=== PATIENT | male | born 1975 | race Caucasian/White ===

== ENCOUNTER 2016-05-19 16:32 | Emergency (ER) | payer OTHER ==
[~2016-05-19] VITALS: Ht 175.3 cm; Wt 171.0 kg
[2016-05-19 16:35] VITALS: TEMP 36.8; Ht 175.3 cm; Wt 171.0 kg
[2016-05-19] MEDS ORDERED: SIMV20TA2 PO (17:36)
[2016-05-19] MEDS ORDERED: CITA20TA9 PO (17:36)
[2016-05-19] MEDS ORDERED: SENN-61 PO (17:36)
[2016-05-19] MEDS ORDERED: FURO20TA PO (17:36)
[2016-05-19] MEDS ORDERED: CLON0.5T3 PO (17:36)
[2016-05-19] MEDS ORDERED: CGN5X PO (17:36)
[2016-05-19] MEDS ORDERED: OMEP40CA41 PO (17:36)
[2016-05-19] MEDS ORDERED: POTA10CA28 PO (17:36)
[2016-05-19] MEDS ORDERED: DESM1TAB16 PO (17:36)
[2016-05-19] MEDS ORDERED: METF500T5 PO (17:36)
[2016-05-19] MEDS ORDERED: HMLI7525 SQ (17:37)
[2016-05-19] MEDS ORDERED: TOPI100T20 PO (17:37)
[2016-05-19] MEDS ORDERED: ALLO300T2 PO (17:37)
[2016-05-19] MEDS ORDERED: HYDR25TA4 PO (17:37)
[2016-05-19] MEDS ORDERED: LISI-789 PO (17:37)
[2016-05-19] MEDS ORDERED: OLAN1TAB50 PO (17:37)
[2016-05-19] MEDS ORDERED: BUPR-79 PO (17:37)
[2016-05-19 17:43] LABS: URINE APPEARANCE CLEAR (CLEAR); URINE BILIRUBIN NEG (NEG); URINE COLOR YELLOW; URINE NITRITE NEG (NEG); URINE PH 7.5 (4.5-7.5); URINE SPECIFIC GRAVITY 1.009 (1.000-1.030); UROBILINOGEN NEG (NEG)
[2016-05-19 17:52] LABS: MANUAL MICROSCOPIC REQUIRED? NO; REVIEW REQ? NO
[2016-05-19 18:17] LABS: BASO % 0.3 %; BASO ABS # 0.02 K/uL (0-0.2); COMPLETE YES; EOS % 4.2 %; IG% 0.3 %; LYMPH % 24.5 %; MEAN CELL VOLUME 93.7 fL (80-100); MEAN CORPUSCULAR HEMOGLOBIN 32.4 pg (25-34); MEAN CORPUSCULAR HGB CONC 34.6 g/dl (32-36); MEAN PLATELET VOLUME 11.3 fL (7.4-10.4); NEUT % 61.7 %; PLATELET COUNT 210 K/uL (130-400); RED BLOOD COUNT 3.95 M/uL (4.7-6.1); WHITE BLOOD COUNT 6.12 K/uL (4.8-10.8)
[2016-05-19 18:17] LABS: BENZODIAZEPINE, URINE NEG (NEG); COCAINE,URINE NEG (NEG); PHENCYCLIDINE, URINE NEG (NEG)
[2016-05-19 18:36] LABS: BLOOD UREA NITROGEN 12 mg/dl (7-18); BUN/CREATININE RATIO 12.2 (10-20); GLUCOSE 131 mg/dl (70-99)
[2016-05-19 18:37] LABS: ALT/SGPT 34 U/L (12-78); AST/SGOT 20 U/L (15-37); CALCIUM 8.5 mg/dl (8.5-10.1); CARBON DIOXIDE 24 mmol/L (21-32); CHLORIDE 107 mmol/L (98-107); POTASSIUM 3.6 mmol/L (3.5-5.1); SODIUM 142 mmol/L (136-145)
[2016-05-19 18:47] LABS: ALB/GLOB RATIO 1.1 (0.9-2); ALKALINE PHOSPHATASE 68 U/L (45-117)
[2016-05-19 20:22] VITALS: BP 124/82; PULSE 90; O2SAT 97
--- NOTE | 2016-05-19 23:07 | EMERGENCY ROOM VISIT NOTE ---
History Report prepared by Che: Verona Ngo Under the Supervision of: Dr. Zeferino Bacon D.O. First contact with patient: 16:39 Chief Complaint: MENTAL HEALTH EVALUATION Stated Complaint: PERVIOUS THOUGHTS OF SUICIDE History of Present Illness The patient is a 41 year old male who presents to the Emergency Room for a mental health evaluation. The patient has a history of schizoaffective bipolar disorder. He notes that he has been having intermittent suicidal thoughts over the past couple of months. About 2-3 weeks ago, his suicidal thoughts worsened and he had a plan to overdose. The patient has had one suicide attempt in the past by overdosing on Paxil. Currently, the patient is not having and suicidal thoughts. He had an appointment with his psychiatrist today and discussed his suicidal thoughts from a few weeks ago. He was subsequently referred to the emergency room to seek inpatient treatment. The patient is unsure what exactly the trigger was to his worsening suicidal thoughts recently. He states that he tries to block out and forget what causes his suicidal thoughts. The patient notes that his general depression comes from the fact that he is 41 and still lives with his parents and does not keep in contact with his friends. The patient notes that he has had some delusions and paranoia, which have been coming and going for a while now. He states that [place] town [place] and he feels like people are judgemental of his situation. He feels like it is reasonable for him to feel paranoid. He denies recent drug or alcohol use. The patient notes that he has had some leg swelling and shortness of breath with exertion that has been baseline for him over the past 5 months. Pt denies headache, change in vision, fevers, chest pain, nausea, vomiting, diarrhea, pain with urination, and melena. Source of History: patient Onset: a couple months ago Position: other (psych) Quality: other (suicidal thoughts) Timing: intermittent Associated Symptoms: No chest pain, No diarrhea, No fevers, No headache, No melena, No nausea, No urinary symptoms, No vomiting Review of Systems See HPI for pertinent positives & negatives. A total of 10 systems reviewed and were otherwise negative. Past Medical & Surgical Medical Problems: (1) Schizoaffective disorder, bipolar type (2) Type 2 diabetes mellitus Family History No pertinent family history stated. Social History Smoking Status: Former Smoker Housing Status: lives with family Current/Historical Medications Scheduled Allopurinol (Zyloprim), 300 MG PO DAILY Benztropine Mesylate (Benztropine Mesylate), 0.5 MG PO QAM Bupropion (Wellbutrin Sr), 150 MG PO DAILY Citalopram Hydrobromide (Celexa), 20 MG PO HS Clonazepam (Klonopin), 0.5 MG PO BID Desmopressin Acetate (Ddavp), 0.2 MG PO HS Hydrochlorothiazide (Hctz), 25 MG PO DAILY Insulin Lispro 75/25 (Humalog Mix 75/25), 35 UNITS SQ BID Lisinopril (Zestril), 2.5 MG PO HS Metformin Hcl Er (Glucophage Er), 2,000 MG PO DAILYBD Olanzapine (Zyprexa Zydis Odt), 10 MG PO BID Omeprazole (Prilosec), 40 MG PO DAILY Potassium Chloride (Micro-K Ext Rel), 10 MEQ PO DAILY Senna (Senokot), 2 TAB PO BID Simvastatin (Zocor), 20 MG PO HS Topiramate (Topamax), 100 MG PO BID Scheduled PRN Furosemide (Lasix), 20 MG PO DAILY PRN for FLUID RETENTION Allergies Coded Allergies: No Known Allergies (Unverified , 05/19/16) Physical Exam Vital Signs Date Time Temp Pulse Resp B/P Pulse Ox O2 Delivery O2 Flow Rate FiO2 05/19/16 20:22 90 16 124/82 97 05/19/16 19:31 81 16 170/96 96 Room Air 05/19/16 16:35 36.8 102 19 178/74 95 Room Air Physical Exam GENERAL: Obese, sitting up on edge of bed, disheveled, nontoxic. EYE EXAM: normal conjunctiva OROPHARYNX: no exudate, no erythema, lips, buccal mucosa, and tongue normal and mucous membranes are moist NECK: supple, no nuchal rigidity, no adenopathy, non-tender LUNGS: Clear to auscultation. Normal chest wall mechanics HEART: no murmurs, S1 normal and S2 normal ABDOMEN: abdomen soft, non-tender, normo-active bowel sounds, no masses, no rebound or guarding. BACK: Back is symmetrical on inspection and there is no deformity, no midline tenderness, no CVA tenderness. SKIN: no rashes and no bruising UPPER EXTREMITIES: upper extremities are grossly normal. LOWER EXTREMITIES: No pitting edema. NEURO EXAM: Normal sensorium, cranial nerves II-XII grossly intact, normal speech, no gross weakness of arms, no gross weakness of legs. PSYCH: Admits to previous suicidal ideations and admits to being paranoid. Medical Decision & Procedures Laboratory Results 05/19/16 17:49 Red Blood Count 3.95, Mean Corpuscular Volume 93.7, Mean Corpuscular Hemoglobin 32.4, Mean Corpuscular Hemoglobin Concent 34.6, Mean Platelet Volume 11.3, Neutrophils (%) (Auto) 61.7, Lymphocytes (%) (Auto) 24.5, Monocytes (%) (Auto) 9.0, Eosinophils (%) (Auto) 4.2, Basophils (%) (Auto) 0.3, Neutrophils # (Auto) 3.77, Lymphocytes # (Auto) 1.50, Monocytes # (Auto) 0.55, Eosinophils # (Auto) 0.26, Basophils # (Auto) 0.02 05/19/16 17:49 Test 05/19/16 17:05 05/19/16 17:34 05/19/16 17:49 Urine Color YELLOW Urine Appearance CLEAR (CLEAR) Urine pH 7.5 (4.5-7.5) Urine Specific [place] 1.009 (1.000-1.030) Urine Protein NEG (NEG) Urine Glucose (UA) NEG (NEG) Urine Ketones NEG (NEG) Urine Occult Blood NEG (NEG) Urine Nitrite NEG (NEG) Urine Bilirubin NEG (NEG) Urine Urobilinogen NEG (NEG) Urine Leukocyte Esterase NEG (NEG) Urine Opiates Screen NEG (NEG) Urine Methadone, Qualitative NEG (NEG) Urine Barbiturates NEG (NEG) Urine Phencyclidine (PCP) Level NEG (NEG) Ur Amphetamine/Methamphetamine NEG (NEG) MDMA (Ecstasy) Screen NEG (NEG) Urine Benzodiazepines Screen NEG (NEG) Urine Cocaine Metabolite NEG (NEG) Urine Marijuana (THC) NEG (NEG) Bedside Glucose 139 mg/dl (70-99) White Blood Count 6.12 K/uL (4.8-10.8) Red Blood Count 3.95 M/uL (4.7-6.1) Hemoglobin 12.8 g/dL (14.0-18.0) Hematocrit 37.0 % (42-52) Mean Corpuscular Volume 93.7 fL (80-100) Mean Corpuscular Hemoglobin 32.4 pg (25-34) Mean Corpuscular Hemoglobin Concent 34.6 g/dl (32-36) Platelet Count 210 K/uL (130-400) Mean Platelet Volume 11.3 fL (7.4-10.4) Neutrophils (%) (Auto) 61.7 % Lymphocytes (%) (Auto) 24.5 % Monocytes (%) (Auto) 9.0 % Eosinophils (%) (Auto) 4.2 % Basophils (%) (Auto) 0.3 % Neutrophils # (Auto) 3.77 K/uL (1.4-6.5) Lymphocytes # (Auto) 1.50 K/uL (1.2-3.4) Monocytes # (Auto) 0.55 K/uL (0.11-0.59) Eosinophils # (Auto) 0.26 K/uL (0-0.5) Basophils # (Auto) 0.02 K/uL (0-0.2) RDW Standard Deviation 45.9 fL (36.4-46.3) RDW Coefficient of Variation 13.4 % (11.5-14.5) Immature Granulocyte % (Auto) 0.3 % Immature Granulocyte # (Auto) 0.02 K/uL (0.00-0.02) Anion Gap 11.0 mmol/L (3-11) Est Creatinine Clear Calc Drug Dose 150.9 ml/min Estimated GFR () 107.1 Estimated GFR (Non- 92.4 BUN/Creatinine Ratio 12.2 (10-20) Calcium Level 8.5 mg/dl (8.5-10.1) Total Bilirubin 0.3 mg/dl (0.2-1) Direct Bilirubin < 0.1 mg/dl (0-0.2) Aspartate Amino Transf (AST/SGOT) 20 U/L (15-37) Alanine Aminotransferase (ALT/SGPT) 34 U/L (12-78) Alkaline Phosphatase 68 U/L (45-117) Total Protein 7.7 gm/dl (6.4-8.2) Albumin 4.0 gm/dl (3.4-5.0) Globulin 3.7 gm/dl (2.5-4.0) Albumin/Globulin Ratio 1.1 (0.9-2) Thyroid Stimulating Hormone (TSH) 1.890 uIu/ml (0.300-4.500) Ethyl Alcohol mg/dL < 3.0 mg/dl (0-3) Laboratory results per my review. ED Course ED COURSE: Vital signs were reviewed and showed hypertension. The patients medical record was reviewed The above diagnostic studies were performed and reviewed. ED treatments and interventions as stated above. 165: The patient was evaluated in room A7. A complete history and physical examination was performed. 1918: Upon reevaluation, the patient is resting comfortably.I discussed my findings with the patient and he understands and agrees with the treatment plan. Based on the patients age, coexisting illnesses, exam and lab findings the decision to transfer the patient to [place] was made. The patient remained stable while under my care. The patient will be evaluated for further management at [place]. Medical Decision Differential diagnosis: Etiologies such as mood disorder, infection, hypoglycemia, electrolyte abnormalities, cardiac sources, intracerebral event, toxicologic, neurologic, as well as others were entertained. Patient is a 41-year-old male that was referred in by her psychiatrist for suicidal ideation associated with delusions and paranoia. He has a history of bipolar schizophrenia. He notes that the suicidal ideations have been worsening over the past 2-3 weeks. Recently he has had none today. Patient would like to come into the hospital as he feels unsafe at home. CBC along with BMP, LFTs, bilirubin and TSH was negative. Tox, alcohol and UA was negative. Patient was updated bedside and was admitted on a 201. He was transferred without complications. Impression Primary Impression: Mood disorder Additional Impression: Suicidal ideation Scribe Attestation The scribe's documentation has been prepared under my direction and personally reviewed by me in its entirety. I confirm that the note above accurately reflects all work, treatment, procedures, and medical decision making performed by me. Departure Information Dispostion Mental Health Acute Care Forms HOME CARE DOCUMENTATION FORM, IMPORTANT VISIT INFORMATION Patient Instructions My [facility] Problem Qualifiers
== END 2016-05-19 20:23 ==
LOC: C.EDB 16:34 → C.EDA 20:23
DX: F25.0 Schizoaffective disorder, bipolar type (principal); R45.851 Suicidal ideations; E11.9 Type 2 diabetes mellitus without complications; Z79.899 Other long term (current) drug therapy; Z79.4 Long term (current) use of insulin